=== PATIENT | male | born 1955 | race Caucasian/White ===

== ENCOUNTER → 2017-06-14 07:02 | Day surgery (SDC) | payer BC ==
[2017-06-14 10:29] LABS: EGFR Non-African American 68.3 (>60)
== END | disposition home or self-care (01) ==
LOC: CHICARD 07:02 → CHICATH 07:02
PROVIDERS: ATTEND Specialist
DX: I48.0 Paroxysmal atrial fibrillation (principal); I45.10 Unspecified right bundle-branch block; R00.1 Bradycardia, unspecified
CPT/HCPCS: 36415; 80048; 83735; 84443; 93005